=== PATIENT | female | born 1955 | race Caucasian/White ===

== ENCOUNTER 2016-08-10 10:21 | Emergency (ER) | payer MEDICARE ==
[2016-08-10 10:27] VITALS: BP 121/70
--- NOTE | 2016-08-10 11:59 | XRAY Preliminary Report ---
Exam: XR Ankle 3 View RT IMPRESSION: Soft tissue swelling. [facility] SITE ID: [id number]
--- NOTE | 2016-08-10 12:02 | XRAY Report ---
EXAM: RIGHT ANKLE RADIOGRAPHY EXAM DATE: 08/10/2016 11:48 AM. CLINICAL HISTORY: Right ankle injury. COMPARISON: None. TECHNIQUE: 3 views. FINDINGS: Bones: No definite fracture or other bone lesion. Joints: Normal. No effusion. No subluxations. The ankle mortise is normally aligned. Soft Tissues: Mild soft tissue swelling over malleoli. IMPRESSION: Soft tissue swelling. [facility] Referring Provider Line: [phone] SITE ID: [id number]
--- NOTE | 2016-08-10 12:18 | ED Physician Documentation ---
PD HPI LOWER EXT INJURY - Stated complaint Stated Complaint: R ANKLE PX - Chief complaint Chief Complaint: Ext Problem - History obtained from History obtained from: Patient - History of Present Illness PD HPI LOW EXT INJURY LOCATION: Right, Ankle Type of injury: Twist Where injury occurred: Home Timing - onset: How many days ago (4) Timing - details: Still present Worsened by: Moving, Other (Weightbearing) Associated symptoms: Swelling. No: Weakness, Numbness - Treatment prior to arrival Treatment prior to arrival: She uses one half Percocet every 4-5 hours for chronic back pain. - Additional information Additional information: The patient is a 60-year-old female who presents with right ankle pain that started 4 days ago when she fell while working in her yard. She denies any other injuries. She presents now because of continued pain at the anterior and lateral aspect of her right ankle. The pain is worse with weightbearing. Past medical history is significant for chronic back pain for which she uses one half Percocet every 4-5 hours. Review of Systems Constitutional: denies: Fever Ears: denies: Tinnitus/ringing Nose: denies: Congestion Throat: denies: Swollen tonsils Cardiac: denies: Chest pain / pressure, Calf pain Respiratory: denies: Dyspnea GI: denies: Nausea, Vomiting Skin: denies: Rash, Abrasion (s) Musculoskeletal: reports: Back pain (chronically), Joint pain (right ankle). denies: Neck pain Neurologic: denies: Focal weakness, Numbness, Headache PD PAST MEDICAL HISTORY - Past Medical History Cardiovascular: None Respiratory: None Neuro: None Musculoskeletal: Chronic back pain - Present Medications Home Medications: Ambulatory Orders Medication Instructions Recorded Confirmed Home Medications Unobtainable 08/10/16 08/10/16 [HOME MEDICATIONS UNOBTAINABLE] - Allergies Allergies/Adverse Reactions: Allergies Allergy/AdvReac Type Severity Reaction Status Date / Time No Known Drug Allergies Allergy Verified 08/10/16 10:26 - Social History Does the pt smoke?: No Smoking Status: Never smoker PD ED PE NORMAL - Vitals Vital signs reviewed: Yes (normal) - General General: Alert and oriented X 3, Well developed/nourished - HEENT HEENT: Atraumatic - Respiratory Respiratory: No respiratory distress - Derm Derm: No rash - Extremities Extremities: No edema, No calf tenderness / cord, Other (There is mild tenderness to palpation over the anterior lateral aspect of the right ankle. There is minimal soft tissue swelling; no ecchymosis. There is no tenderness to palpation over the posterior aspect of the lateral malleolus malleolus, the fifth metatarsal base, or the proximal fibula. Distal neurovascular is intact.) - Neuro Neuro: Alert and oriented X 3, No motor deficit, No sensory deficit, Normal speech Results - Vitals Vitals: Oxygen O2 Source Room air - Rads (name of study) ankle xray Radiology: Prelim report reviewed, EMP read contemporaneously, See rad report ( Soft tissue swelling.) Procedures - Splint (location) Right ankle Splint applied by: Tech Type of splint: Ankle airsplint Other: Patient tolerated well, No complications, Neurovascular intact PD MEDICAL DECISION MAKING - ED course Complexity details: reviewed results, re-evaluated patient, considered differential, d/w patient ED course: The patient's presentation is most consistent with right ankle sprain. X-ray reveals soft tissue swelling, without evidence of fracture or dislocation. An ankle air splint was applied. I discussed with her the expected course of injury, symptomatic treatment and outpatient follow-up, as well as potentially worrisome signs or symptoms that should prompt reevaluation in the emergency department. Departure - Departure Disposition: 01 Home, Self Care Clinical Impression: Ankle sprain Qualifiers: Encounter type: initial encounter Involved ligament of ankle: unspecified ligament Laterality: right Qualified Code(s): S93.401A - Sprain of unspecified ligament of right ankle, initial encounter Condition: Stable Instructions: ED Sprain Ankle W X Ray Follow-Up: Marli Oh MD [Primary Care Provider] - Comments: Keep your right leg elevated as much the time as possible. Apply icepack to your right ankle intermittently for the next 3 or 4 days. Use the ankle air splint it provides comfort. You can use ibuprofen, up to 800 mg 3 times daily, if needed for discomfort. Let pain be your guide to activity level. Follow up with your primary physician within 2 weeks. Call to schedule an appointment. Return to the emergency department if you develop increasing pain or swelling, or otherwise worsening symptoms. Discharge Date/Time: 08/10/16 12:23
== END 2016-08-10 12:23 | disposition home or self-care (01) ==
LOC: ED 10:21
DX: S93.401A Sprain of unspecified ligament of right ankle, initial encounter (principal); W18.30XA Fall on same level, unspecified, initial encounter; Y93.H9 Activity, other involving exterior property and land maintenance, building and construction; Y92.007 Garden or yard of unspecified non-institutional (private) residence as the place of occurrence of the external cause; M54.9 Dorsalgia, unspecified; G89.29 Other chronic pain
CPT/HCPCS: 99283

== ENCOUNTER 2017-10-24 04:08 | Emergency (ER) | payer MEDICARE ==
[2017-10-24] MEDS ORDERED: HYDROmorphone 1 MG/ML CARPUJECT IVP STA (05:08)
[2017-10-24] MEDS ORDERED: ONDANSETRON 4 MG/2 ML VIAL IVP STA (05:08)
[2017-10-24] MEDS ORDERED: SODIUM CHLORIDE 0.9% 1,000 ML IV ONE (05:08)
--- NOTE | 2017-10-24 05:11 | ED Physician Documentation ---
PD HPI BACK PAIN - Stated complaint Stated Complaint: BACK PAIN,LE WEAKNESS - Chief complaint Chief Complaint: Back Pain - History obtained from History obtained from: Patient, Family ( [place]) - History of Present Illness Timing - onset: How many days ago (10) Timing - duration: Days (10) Timing - details: Gradual onset, Still present Location: Lower, Right, Left Quality: Pain, Spasm, Sharp, Similar to prior episodes Associated symptoms: Weakness (left), Numbness (left). No: Fever, Incontinent of urine, Unable to urinate, Hematuria, Incontinent of stool Improves with: Rest, Meds Worsened by: Movement, Palpation Contributing factors: Other (has history of low back pain) Similar symptoms before: Diagnosis (back pain) Recently seen: Not recently seen - Additional information Additional information: 61-year-old female with a history of chronic low back pain who takes one half of a Percocet 4 times per day has developed significantly worse back pain over the past 10 days. She states that she awoke with this back pain about 10 days ago that was worse and this morning she went to get out of bed and not only felt quite dizzy but had significant pain. She has decided to come to the emergency department this morning. She relates a fall tripping in some brush on the side of the road that occurred approximately 3 weeks ago. She seems to have recovered from that with an abrasion to her knee and a sprain of her left arm. She did not have pain in her back associated with that fall. She relates that she gets up to go to the bathroom 4 or 5 times per night. She does not have a history of diabetes. Review of Systems Constitutional: denies: Fever Eyes: denies: Decreased vision Ears: denies: Ear pain Nose: denies: Congestion Throat: denies: Sore throat Cardiac: denies: Chest pain / pressure, Palpitations Respiratory: denies: Dyspnea, Cough GI: denies: Abdominal Pain, Nausea, Vomiting : denies: Dysuria, Frequency Musculoskeletal: reports: Back pain, Extremity pain. denies: Neck pain Neurologic: reports: Focal weakness, Numbness. denies: Generalized weakness PD PAST MEDICAL HISTORY - Past Medical History Past Medical History: Yes Cardiovascular: Hypertension, High cholesterol Respiratory: None Musculoskeletal: Chronic back pain - Past Surgical History Past Surgical History: Yes Ortho: Other - Present Medications Home Medications: Ambulatory Orders Medication Instructions Recorded Confirmed Sulfamethoxazole/Trimethoprim 1 each PO BID #10 tablet 10/24/17 [Sulfamethoxazole-Tmp Ds Tablet] oxyCODONE/ACET 5/325 [Percocet 5 1 tab PO Q4HR PRN 10/24/17 10/24/17 mg/325 mg] - Allergies Allergies/Adverse Reactions: Allergies Allergy/AdvReac Type Severity Reaction Status Date / Time No Known Drug Allergies Allergy Verified 10/24/17 04:25 - Social History Does the pt smoke?: No Smoking Status: Never smoker Does the pt drink ETOH?: No Does the pt have substance abuse?: No - Immunizations Immunizations are current?: Yes - POLST Patient has POLST: No PD ED PE NORMAL - Vitals Vital signs reviewed: Yes (hypertensive ) - General General: Alert and oriented X 3, Well developed/nourished, Other (The patient moves slowly and winches in pain with movement. ) - HEENT HEENT: Atraumatic, PERRL, EOMI - Neck Neck: Supple, no meningeal sign, No bony TTP - Cardiac Cardiac: RRR, No murmur - Respiratory Respiratory: No respiratory distress, Clear bilaterally - Abdomen Abdomen: Soft, Non tender - Back Back: No CVA TTP, Other (There is tenderness to palpation of the lower lumbar paraspinous muscles bilaterally worse on the left. ) - Derm Derm: Normal color, Warm and dry, No rash - Extremities Extremities: No deformity, No edema - Neuro Neuro: Alert and oriented X 3, commercial estimator 2-12 intact, Normal speech, Other (There is subjective numbness to the back of the calf and to the web space of the foot on the left. The dorsiflexion of the great toe appears intact bilaterally and is slightly worse on the left. She is able to raise the right leg but is weak on hip flexion on the left. ) Eye Opening: Spontaneous Motor: Obeys Commands Verbal: Oriented GCS Score: 15 - Psych Psych: Normal mood, Normal affect Results - Vitals Vitals: Vital Signs - 24 hr 10/24/17 10/24/17 10/24/17 04:15 06:00 06:39 Temperature 36.5 C 36.3 C L 36.0 C L Heart Rate 77 76 68 Respiratory 17 14 16 Rate Blood Pressure 137/79 H 106/80 111/51 L O2 Saturation 98 97 95 10/24/17 06:55 Temperature 36.2 C L Heart Rate 65 Respiratory 14 Rate Blood Pressure 109/66 O2 Saturation 95 Oxygen O2 Source Room air - Labs Labs: Laboratory Tests 10/24/17 10/24/17 10/24/17 05:05 05:10 05:10 WBC 7.8 RBC 4.33 Hgb 13.7 Hct 41.2 MCV 95.2 MCH 31.7 H MCHC 33.3 RDW 13.2 Plt Count 356 MPV 7.1 L Neut # (Auto) 5.0 Lymph # (Auto) 2.1 [place] # (Auto) 0.5 Eos # (Auto) 0.2 Baso # (Auto) 0.1 Absolute Nucleated RBC 0.00 Nucleated RBC % 0.1 Sodium 139 Potassium 3.5 Chloride 104 Carbon Dioxide 28 Anion Gap 7.0 BUN 15 Creatinine 0.7 Estimated GFR (MDRD) 85 L Glucose 94 Calcium 9.3 Total Bilirubin 0.7 AST 16 ALT 17 Alkaline Phosphatase 88 Total Protein 7.6 Albumin 4.2 Globulin 3.4 Albumin/Globulin Ratio 1.2 Lipase 26 Urine Color YELLOW Urine Clarity CLEAR Urine pH 6.0 Ur Specific [place] 1.010 Urine Protein NEGATIVE Urine Glucose (UA) NEGATIVE Urine Ketones NEGATIVE Urine Occult Blood NEGATIVE Urine Nitrite NEGATIVE Urine Bilirubin NEGATIVE Urine Urobilinogen 0.2 (NORMAL) Ur Leukocyte Esterase SMALL H Urine RBC 0-5 Urine WBC 6-10 H Ur Epithelial Cells FEW Renal Tubular Ur Squamous Epith Cells MOD Squamous H Urine Bacteria Few Ur Microscopic Review INDICATED Urine Culture Comments NOT INDICATED - Rads (name of study) lumbar spine Radiology: Prelim report reviewed (Impression: 1. Osteopenia and degenerative changes. 2 Mild chronic wedging at L2. 3 No acute abnormality seen.), EMP read indepedently, See rad report Procedures - IVC sono (time) 0500 Bedside IVC sono: IVC measures (cm) (1.19), IVC collapsed c insp (cm) (complete) , Dehydration (est 1 liter deficit.) PD MEDICAL DECISION MAKING - ED course Complexity details: reviewed old records, reviewed results, re-evaluated patient , considered differential, d/w patient, d/w family ED course: 61-year-old female with a history of low back pain chronically has developed significant worsening of her pain over the past 10 days and this morning she is in agony with pain. She arrives to the emergency department barely able to move. She is found to be mildly dehydrated on interrogation of the IVC and she is administered saline, Dilaudid, Zofran and dexamethasone. She has remarkable recovery and feels much improved. She did ask to have imaging procedures done of her back which demonstrated an remote L2 fracture. On evaluation she is found to have UTI and she is administered rocephin and we will place her on some sept. - Sepsis Event Vital Signs: Vital Signs - 24 hr 10/24/17 10/24/17 10/24/17 04:15 06:00 06:39 Temperature 36.5 C 36.3 C L 36.0 C L Heart Rate 77 76 68 Respiratory 17 14 16 Rate Blood Pressure 137/79 H 106/80 111/51 L O2 Saturation 98 97 95 10/24/17 06:55 Temperature 36.2 C L Heart Rate 65 Respiratory 14 Rate Blood Pressure 109/66 O2 Saturation 95 Oxygen O2 Source Room air Departure - Departure Disposition: 01 Home, Self Care Clinical Impression: Sciatica Qualifiers: Laterality: left Qualified Code(s): M54.32 - Sciatica, left side Urinary tract infection Qualifiers: Urinary tract infection type: acute cystitis Hematuria presence: without hematuria Qualified Code(s): N30.00 - Acute cystitis without hematuria Instructions: ED Sciatica, ED UTI Cystitis Female Follow-Up: Marli Oh MD [Primary Care Provider] - Prescriptions: Sulfamethoxazole/Trimethoprim [Sulfamethoxazole-Tmp Ds Tablet] 1 each PO BID # 10 tablet
[2017-10-24 05:29] LABS: BILIRUBIN,URINE NEGATIVE (NEGATIVE); GLUCOSE, URINE (UA) NEGATIVE (NEGATIVE); KETONES,URINE (UA) NEGATIVE (NEGATIVE); LEUKOCYTE ESTERASE, URINE SMALL (NEGATIVE); NITRITE,URINE NEGATIVE (NEGATIVE); OCCULT BLOOD,URINE NEGATIVE (NEGATIVE); PROTEIN,URINE NEGATIVE (NEGATIVE); UROBILINOGEN,URINE 0.2 (NORMAL) E.U./dL (NORMAL)
[2017-10-24 05:30] LABS: BASOPHILS # (AUTO) 0.1 10^3/uL (0.0-0.1); BASOPHILS % (AUTO) 0.6 %; EOSINOPHILS # (AUTO) 0.2 10^3/uL (0.0-0.7); EOSINOPHILS % (AUTO) 2.2 %; HGB - HEMOGLOBIN 13.7 g/dL (12.0-16.0); LYMPHOCYTES # (AUTO) 2.1 10^3/uL (1.5-3.5); LYMPHOCYTES % (AUTO) 26.4 %; MEAN CORPUSCULAR HEMOGLOBIN 31.7 pg (27.0-31.0); MEAN CORPUSCULAR HGB CONC 33.3 g/dL (32.0-36.0); MEAN CORPUSCULAR VOLUME 95.2 fL (81.0-99.0); MEAN PLATELET VOLUME 7.1 fL (7.9-10.8); MONOCYTES # (AUTO) 0.5 10^3/uL (0.0-1.0); MONOCYTES % (AUTO) 6.2 %; NEUTROPHILS % (AUTO) 64.6 %; PLT - PLATELET COUNT 356 10^3/uL (130-450); RED BLOOD COUNT 4.33 10^6/uL (4.20-5.40); RED CELL DISTRIBUTION WIDTH 13.2 % (12.0-15.0); WHITE BLOOD COUNT 7.8 x10^3/uL (4.8-10.8)
[2017-10-24 05:31] LABS: CLARITY,URINE CLEAR (CLEAR)
[2017-10-24 05:43] LABS: ALBUMIN 4.2 g/dL (3.2-5.5); ALBUMIN/GLOBULIN RATIO 1.2 (1.0-2.2); BILIRUBIN,TOTAL 0.7 mg/dL (0.2-1.0); CALCIUM 9.3 mg/dL (8.5-10.3); CREATININE 0.7 mg/dL (0.4-1.0); TOTAL PROTEIN 7.6 g/dL (6.7-8.2)
[2017-10-24 05:45] LABS: BACTERIA,URINE Few /HPF (None Seen); EPITHELIAL CELLS,UR FEW Renal Tubular /HPF (<= Few); RBC,URINE 0-5 /HPF (0-5); SQUAMOUS EPITHELIAL CELL,UR MOD Squamous (<= Few)
[2017-10-24] MEDS ORDERED: cefTRIAXone 1 GM in SODIUM CHLORIDE 0.9% MINIBAG 100 ML IV STA (05:56)
[2017-10-24] MEDS ORDERED: DEXAMETHASONE 10 MG/ML VIAL IVP STA (05:58)
--- NOTE | 2017-10-24 06:51 | XRAY Report ---
Procedure Date: 10/24/2017 Accession Number: [id number] / [id number] Procedure: XR - Lumbar Spine 2 View CPT Code: FULL RESULT: EXAM: LUMBOSACRAL SPINE RADIOGRAPHY EXAM DATE: 10/24/2017 06:43 AM. CLINICAL HISTORY: Lower lumbar pain recent fall. COMPARISONS: XR LUMBAR SPINE 2 OR 3 VIEWS 04/30/2008. TECHNIQUE: 2 views. FINDINGS: Alignment: Minimal lumbar curvature convex to the left. Minimal grade 1 degenerative spondylolisthesis at L4-L5. Bones: Five [id number] lumbar vertebral bodies are present. Osteopenia. Mild chronic wedging at L2. No new fracture identified. Disks: Mild multilevel degenerative disk disease. Facets: Multilevel degenerative joint disease. Sacroiliac Joints: Unremarkable. Soft Tissues: Grossly unremarkable. IMPRESSION: 1. Osteopenia and degenerative changes. 2. Mild chronic wedging at L2. 3. No acute abnormality seen. [facility]
[2017-10-24 06:56] VITALS: BP 109/66
== END 2017-10-24 07:06 | disposition home or self-care (01) ==
LOC: ED 04:08
DX: M54.32 Sciatica, left side (principal); N30.00 Acute cystitis without hematuria; E86.0 Dehydration; I10 Essential (primary) hypertension; G89.29 Other chronic pain; M54.5 Low back pain; M51.36 Other intervertebral disc degeneration, lumbar region; M48.56XA Collapsed vertebra, not elsewhere classified, lumbar region, initial encounter for fracture
CPT/HCPCS: 36415; 72100; 80053; 81001; 83690; 85025; 96361; 96365; 96375; 99283; 99284; J1170; 81003; 87086

== ENCOUNTER 2019-03-18 22:53 | Emergency (ER) | payer MEDICARE ==
[2019-03-18 23:17] VITALS: BP 130/96
--- NOTE | 2019-03-18 23:23 | ED Physician Documentation ---
PD HPI UPPER EXT INJURY - Stated complaint Stated Complaint: RIGHT ARM POST OPP PX - Chief complaint Chief Complaint: Ext Problem - History obtained from History obtained from: Patient, Family - History of Present Illness Location: Right, Elbow, Wrist Type of injury: Fall Where injury occurred: Home Timing - onset: How many weeks ago (2) Timing - duration: Weeks (2) Timing - details: Abrupt onset Improved by: Rest, Immobilization Worsened by: Moving, Palpating Associated symptoms: Swelling. No: Weakness, Numbness, Tingling Contributing factors: Anticoagulated Similar symptoms before: Has not had sx before Recently seen: Surgery - Additonal information Additional information: 63-year-old female has had a fall and fracture of her right elbow. She required replacement of the right elbow and that surgery was done today at [facility]. She has come into the emergency department this evening with the chief complaint that she feels her splint is on too tight right at her hand. She has noted the splint to be digging into the ulnar aspect of the hand and causing pain. She was not able to sleep because of this. She does not have much in the way of pain over the surgical site and the splint otherwise is fitting well. She has good capillary refill. Review of Systems Constitutional: denies: Fever, Chills Ears: denies: Ear pain Nose: denies: Congestion Throat: denies: Sore throat Respiratory: denies: Cough GI: denies: Vomiting PD PAST MEDICAL HISTORY - Past Medical History Cardiovascular: Hypertension, High cholesterol Respiratory: None Musculoskeletal: Chronic back pain - Past Surgical History Past Surgical History: Yes Ortho: Other - Present Medications Home Medications: Ambulatory Orders Medication Instructions Recorded Confirmed Sulfamethoxazole/Trimethoprim 1 each PO BID #10 tablet 10/24/17 [Sulfamethoxazole-Tmp Ds Tablet] oxyCODONE/ACET 5/325 [Percocet 5 1 tab PO Q4HR PRN 10/24/17 10/24/17 mg/325 mg] - Allergies Allergies/Adverse Reactions: Allergies Allergy/AdvReac Type Severity Reaction Status Date / Time Sulfa (Sulfonamide Allergy Unknown Verified 03/18/19 23:17 Antibiotics) - Social History Does the pt smoke?: No Smoking Status: Never smoker Does the pt drink ETOH?: No Does the pt have substance abuse?: No - Immunizations Immunizations are current?: Yes - POLST Patient has POLST: No PD ED PE NORMAL - Vitals Vital signs reviewed: Yes (hypertensive ) - General General: Alert and oriented X 3, No acute distress, Well developed/nourished - HEENT HEENT: Atraumatic, PERRL, EOMI - Respiratory Respiratory: No respiratory distress - Derm Derm: Normal color, Warm and dry - Extremities Extremities: Other (The right upper extremity is in a long arm splint to the mid metacarpal. There is swelling of the hand and the splint is compressing at the metacarpal. The splint is placed so that there is not movement of the wrist. distal n/v is intact. ) - Neuro Neuro: Alert and oriented X 3, eye dropper assembler 2-12 intact, No motor deficit, No sensory deficit, Normal speech Eye Opening: Spontaneous Motor: Obeys Commands Verbal: Oriented GCS Score: 15 - Psych Psych: Normal mood, Normal affect Results - Vitals Vitals: Vital Signs - 24 hr 03/18/ 23:00 Temperature 36.8 C Heart Rate 95 Respiratory 16 Rate Blood Pressure 130/96 H O2 Saturation 97 Oxygen O2 Source Room air PD MEDICAL DECISION MAKING - ED course Complexity details: reviewed old records, reviewed results, re-evaluated patient, considered differential, d/w patient, d/w family ED course: 63-year-old female with a splint placed earlier today that is compressing at her fifth metacarpal. The cast cutter is used to remove the distal portion of the splint and then a splint is reapplied over the top of that with additional padding. The patient will follow up with orthopedic doctor as previously planned. Departure - Departure Disposition: 01 Home, Self Care Clinical Impression: Tight cast Condition: Stable Instructions: ED Splint Care Fiberglass Follow-Up: LARON COATS [Physician No Access] -
== END 2019-03-18 23:45 | disposition home or self-care (01) ==
LOC: ED 22:53
DX: G89.18 Other acute postprocedural pain (principal); M79.601 Pain in right arm; Z51.89 Encounter for other specified aftercare; S52.121D Displaced fracture of head of right radius, subsequent encounter for closed fracture with routine healing; W19.XXXD Unspecified fall, subsequent encounter; I10 Essential (primary) hypertension
CPT/HCPCS: 99282

== ENCOUNTER 2019-09-04 14:50 | Emergency (ER) | payer MEDICARE ==
--- NOTE | 2019-09-04 15:46 | ED Physician Documentation ---
History of Present Illness - Stated complaint Stated Complaint: LT SIDE PX, PRODUCTIVE COUGH - HX OF PN - Chief complaint Chief Complaint: Resp - History obtained from History obtained from: Patient - Additonal information Additional information: Patient comes emergency department complaining of left-sided chest/rib pain for the last month. She denies any trauma. She states she has had a cough prod uctive of clear phlegm. She denies any fevers or chills. She states she otherwise feels well. No shortness of breath. No long history. No radiation of pain. Pain is worse with deep breath or cough. No abdominal symptoms. No nausea or vomiting. No other complaints. Review of Systems Ten Systems: 10 systems reviewed and negative Constitutional: reports: Reviewed and negative Eyes: reports: Reviewed and negative Ears: reports: Reviewed and negative Nose: reports: Reviewed and negative Throat: reports: Reviewed and negative Cardiac: reports: Chest pain / pressure Respiratory: reports: Reviewed and negative GI: reports: Reviewed and negative : reports: Reviewed and negative Skin: reports: Reviewed and negative Musculoskeletal: reports: Reviewed and negative Neurologic: reports: Reviewed and negative Psychiatric: reports: Reviewed and negative Endocrine: reports: Reviewed and negative Immunocompromised: reports: Reviewed and negative PD PAST MEDICAL HISTORY - Past Medical History Cardiovascular: Hypertension, High cholesterol Respiratory: None Neuro: None Endocrine/Autoimmune: None GI: None [employer] SERV[employer] DBA: None : None HEENT: None Psych: None Musculoskeletal: None, Chronic back pain Derm: None - Past Surgical History Past Surgical History: Yes Ortho: Other - Present Medications Home Medications: Ambulatory Orders Medication Instructions Recorded Confirmed Sulfamethoxazole/Trimethoprim 1 each PO BID #10 tablet 10/24/17 [Sulfamethoxazole-Tmp Ds Tablet] oxyCODONE/ACET 5/325 [Percocet 5 1 tab PO Q4HR PRN 10/24/17 10/24/17 mg/325 mg] - Allergies Allergies/Adverse Reactions: Allergies Allergy/AdvReac Type Severity Reaction Status Date / Time Sulfa (Sulfonamide Allergy Unknown Verified 09/04/19 14:58 Antibiotics) - Social History Does the pt smoke?: No Smoking Status: Never smoker Does the pt drink ETOH?: No Does the pt have substance abuse?: No - Immunizations Immunizations are current?: Yes - POLST Patient has POLST: No PD ED PE NORMAL - Vitals Vital signs reviewed: Yes - General General: Alert and oriented X 3, No acute distress - HEENT HEENT: Atraumatic, PERRL, EOMI, Moist mucous membranes - Neck Neck: Supple, no meningeal sign - Cardiac Cardiac: RRR, No murmur, Strong equal pulses - Respiratory Respiratory: No respiratory distress, Clear bilaterally - Abdomen Abdomen: Soft, Non tender, Non distended - Back Back: No CVA TTP - Derm Derm: Normal color, Warm and dry, No rash, Other (Patient has an approximately 3 mm, firm, rubbery, mobile left axillary lymph node without overlying erythema, induration, or fluctuance. Note is minimally tender.) - Extremities Extremities: No deformity, No edema, No calf tenderness / cord - Neuro Neuro: Alert and oriented X 3, Other (Grossly normal) - Psych Psych: Normal mood, Normal affect Results - Vitals Vitals: Vital Signs - 24 hr 09/04/19 09/04/19 09/04/19 14:54 14:58 17:46 Temperature 36.5 C 36.8 C Heart Rate 71 72 67 Respiratory 18 18 18 Rate Blood Pressure 150/76 H 148/86 H 172/84 H O2 Saturation 97 97 97 Oxygen O2 Source Room air - Labs Labs: Laboratory Tests 09/04/19 16:50 Coronavirus (PCR) NEGATIVE - Rads (name of study) cxr Radiology: Final report received, EMP read indepedently, See rad report (negative) CT chest Radiology: Final report received, EMP read indepedently, See rad report (Final radiologist interpretation: Circumscribed left axillary mass likely representing an enlarged lymph node. The finding is suspicious for metastatic disease. Differential also includes reactive node from an atypical infection or inflammatory process. Recommend correlation clinically. No acute consolidation in the lungs. Small nonspecific 2 mm right middle lobe nodule. The finding in the indeterminate clinical significance follow-up CT recommended in 12 months.) PD MEDICAL DECISION MAKING - ED course Complexity details: reviewed results, re-evaluated patient, considered differential, d/w patient ED course: Patient was worked up in the emergency department with 2 view chest x-ray and COVID testing. The patient's chest x-ray was unremarkable, but given the duration of pain she had been having, I felt she should have a CT of the chest To further evaluate the pain. This was done and demonstrated a benign-appearing right lung nodule but also, left axillary lymphadenopathy which was suspicious for metastatic disease. I did discuss this with the patient, who had not jennifer t up the lymph node on our initial discussion, and she stated she had noticed the enlarged lymph node for a while. I have discussed with her that it is of extreme importance that she follow-up as soon as possible for further evaluation of this by biopsy. I have advised her to call her primary care physician first thing in the morning, and that while we have not found any potential primary source of metastases that she will most likely need further evaluation. Patient is agreeable to the plan. I have also advised the patient that she should be doing regular breast exams on herself, which the patient states that she does. She does note that she has not had a mastectomy in many years, and I would asked her that is probably time to consider having this done in the near future. Departure - Departure Disposition: 01 Home, Self Care Clinical Impression: Lymph node enlargement, Pulmonary nodule Chest pain Qualifiers: Chest pain type: pleurodynia Qualified Code(s): R07.81 - Pleurodynia Condition: Stable Instructions: Lymphadenopathy Comments: Your chest x-ray looks good. However, the CT scan shows an enlarged lymph node in your left armpit that is concerning for possible metastatic cancer. You were found to have a nodule, or small soft tissue growth, in your right lung which is most likely benign, but should be reimaged in about a month 12 months. However, the lymph node should be biopsied as soon as possible. As such, you should call your primary care physician's office to either be scheduled for this or to request a referral to somebody who can do it. When you call to make the appointment, please let the office know that this is a possible cancerous growth and that you have been instructed to be seen as soon as possible. Discharge Date/Time: 09/04/19 19:09
--- NOTE | 2019-09-04 15:51 | XRAY Report ---
Reason: cough, left posterior rib pain, shortness of breat Procedure Date: 09/04/2019 Accession Number: [id number] / [id number] Procedure: XR - Chest 2 View X-Ray CPT Code: 82748 Final Report FULL RESULT: PROCEDURE: Chest 2 View X-Ray INDICATIONS: cough, left posterior rib pain, shortness of breat TECHNIQUE: 2 views of the chest were obtained. COMPARISON: Chest x-ray 06/19/2013 FINDINGS: Surgical changes and devices: None. Lungs and pleura: No pleural effusions or pneumothorax. Lungs are clear. Mediastinum: Mediastinal contours are normal. Heart size is mildly prominent. Bones and chest wall: No suspicious bony abnormalities. Soft tissues appear unremarkable. IMPRESSION: No acute pulmonary process. Reviewed by: Ximena Shore MD on 09/04/2019 3:50 PM PDT Approved by: Ximena Shore MD on 09/04/2019 3:50 PM PDT Station ID: [id number]
[2019-09-04 17:47] VITALS: BP 172/84
--- NOTE | 2019-09-04 18:35 | CT Report ---
Reason: ongoing L chest pain, cough Procedure Date: 09/04/2019 Accession Number: [id number] / [id number] Procedure: CT - CHEST WO CPT Code: Final Report FULL RESULT: PROCEDURE: CHEST WO INDICATIONS: ongoing L chest pain, cough TECHNIQUE: Noncontrast 5 mm thick sections acquired from the pulmonary apices to the posterior costophrenic angles. 7 mm thick coronal and sagittal MIP reformats were then acquired. For radiation dose reduction, the following was used: automated exposure control, adjustment of mA and/or kV according to patient size. COMPARISON: Chest x-ray 09/04/2019 FINDINGS: Image quality: Excellent. Lungs and pleura: No acute consolidation. There is a small 2 mm nodule in the right middle lobe on series 4 image 163. No pleural effusions or pneumothorax. Central and peripheral airways are patent and normal in caliber. Mediastinum: Heart size is normal. No pericardial effusion. No mediastinal adenopathy by size criteria. Thoracic aorta and central pulmonary arteries are normal in size. Esophagus is normal in caliber. No hiatal hernia. Bones and chest wall: No suspicious bony lesions. No vertebral body compression fractures. There is a large oval lobulated circumscribed mass in the left axilla measuring up to 4.0 x 3.1 x 4.1 cm likely representing an enlarged lymph node. No discrete mass visualized within the visualized left breast. The thyroid demonstrates no discrete nodules. Abdomen: Visualized upper abdomen demonstrates a small nonobstructing stone within the visualized right kidney measuring up to 3 mm. There is a right adrenal nodule measuring up to 2.4 cm. This demonstrates attenuation values compatible with a lipid rich adenoma. IMPRESSION: 1. Circumscribed left axillary mass likely representing an enlarged lymph node. The finding is suspicious for metastatic disease. The differential also includes a reactive node from an atypical infection or inflammatory process. Recommend correlation clinically. Further evaluation may be obtained with an ultrasound-guided biopsy. 2. No acute consolidation in the lungs. 3. Small nonspecific 2 mm right middle lobe nodule. The finding is of indeterminate clinical significance and if indicated a follow-up CT may be performed in 12 months to demonstrate stability. Reviewed by: Pako Caceres MD on 09/04/2019 6:34 PM PDT Approved by: Pako Caceres MD on 09/04/2019 6:34 PM PDT Station ID: [id number]
== END 2019-09-04 19:09 | disposition home or self-care (01) ==
LOC: ED 14:50
DX: R07.81 Pleurodynia (principal); R59.0 Localized enlarged lymph nodes; R91.1 Solitary pulmonary nodule; R05 Cough; Z20.828 Contact with and (suspected) exposure to other viral communicable diseases; I10 Essential (primary) hypertension
CPT/HCPCS: 71046; 71250; 99283; 99284; U0004; 81599

== ENCOUNTER 2019-09-23 07:07 | Emergency (ER) | payer MEDICARE ==
--- NOTE | 2019-09-23 07:16 | ED Physician Documentation ---
PD HPI ABD PAIN - Stated complaint Stated Complaint: R SIDE BACK PX - History obtained from History obtained from: Patient - History of Present Illness Timing - onset: How many hours ago (1), Today Timing - duration: Hours (1) Timing - details: Abrupt onset, Still present Quality: Aching, Sharp, Pain Location: RLQ Radiation: Right flank Improved by: No: Eating Worsened by: No: Eating Associated symptoms: Nausea. No: Fever, Vomiting, Diarrhea, Constipation, Near syncope / syncope, Loss of appetite Similar symptoms before: Has not had sx before Recently seen: Clinic, Emergency Dept (seen few weeks ago for chest pain and Dx with axillary node and possible chest wall/breast lesion. She had this biopsied and Dx of breast cancer. Seeing Oncology soon. Had not had the flnak pain though until today.) Review of Systems Constitutional: denies: Fever, Chills, Myalgias Nose: denies: Rhinorrhea / runny nose, Congestion Throat: denies: Sore throat Respiratory: denies: Cough GI: reports: Abdominal Pain. denies: Nausea, Vomiting, Diarrhea Skin: denies: Rash, Lesions Neurologic: denies: Generalized weakness, Difficulty speaking, Near syncope PD PAST MEDICAL HISTORY - Past Medical History Cardiovascular: Hypertension, High cholesterol Respiratory: None Neuro: None Endocrine/Autoimmune: None GI: None RN TRIAGE: None : None HEENT: None Psych: None Musculoskeletal: None, Chronic back pain Derm: None - Past Surgical History Past Surgical History: Yes Ortho: Other - Present Medications Home Medications: Ambulatory Orders Medication Instructions Recorded Confirmed Sulfamethoxazole/Trimethoprim 1 each PO BID #10 tablet 10/24/17 09/23/19 [Sulfamethoxazole-Tmp Ds Tablet] oxyCODONE/ACET 5/325 [Percocet 5 1 tab PO Q4HR PRN 10/24/17 09/23/19 mg/325 mg] Naproxen 500 mg PO BID #20 tablet 09/23/19 Ondansetron Odt [Zofran] 4 mg TL Q6H PRN #10 tablet 09/23/19 Oxycodone HCl/Acetaminophen 1 - 2 each PO Q6H PRN #20 tablet 09/23/19 [Percocet 5-325 mg Tablet] - Allergies Allergies/Adverse Reactions: Allergies Allergy/AdvReac Type Severity Reaction Status Date / Time Sulfa (Sulfonamide Allergy Unknown Verified 09/23/19 07:19 Antibiotics) - Social History Does the pt smoke?: No Smoking Status: Never smoker Does the pt drink ETOH?: No Does the pt have substance abuse?: No - Immunizations Immunizations are current?: Yes - POLST Patient has POLST: No PD ED PE NORMAL - Vitals Vital signs reviewed: Yes - General General: Alert and oriented X 3, Well developed/nourished, Other (appears in pain for flank) - HEENT HEENT: Pharynx benign - Neck Neck: Supple, no meningeal sign, No adenopathy - Cardiac Cardiac: RRR, No murmur - Respiratory Respiratory: Clear bilaterally - Abdomen Abdomen: Non tender Results - Vitals Vitals: Vital Signs - 24 hr 09/23/19 09/23/19 09/23/19 07:13 07:19 09:45 Temperature 36.6 C 36.5 C Heart Rate 60 64 60 Respiratory 16 14 16 Rate Blood Pressure 138/76 H 136/70 H 140/72 H O2 Saturation 97 97 98 Oxygen O2 Source Room air - Labs Labs: Laboratory Tests 09/23/19 09/23/19 09/23/19 07:30 07:45 07:45 WBC 7.2 RBC 3.72 L Hgb 12.5 Hct 37.1 MCV 99.7 H MCH 33.6 H MCHC 33.7 RDW 12.5 Plt Count 277 MPV 8.7 Neut # (Auto) 5.4 Lymph # (Auto) 1.2 L [place] # (Auto) 0.3 Eos # (Auto) 0.2 Baso # (Auto) 0.0 Absolute Nucleated RBC 0.00 Nucleated RBC % 0.0 Sodium 140 Potassium 3.4 L Chloride 102 Carbon Dioxide 29 Anion Gap 9.0 BUN 21 H Creatinine 0.9 Estimated GFR (MDRD) 63 L Glucose 102 H Calcium 9.2 Total Bilirubin 0.9 AST 13 ALT 15 Alkaline Phosphatase 70 Total Protein 7.2 Albumin 3.8 Globulin 3.4 Albumin/Globulin Ratio 1.1 Lipase 38 Urine Color YELLOW Urine Clarity CLEAR Urine pH 5.5 Ur Specific [place] >=1.030 H Urine Protein TRACE Urine Glucose (UA) NEGATIVE Urine Ketones NEGATIVE Urine Occult Blood LARGE H Urine Nitrite NEGATIVE Urine Bilirubin NEGATIVE Urine Urobilinogen 0.2 (NORMAL) Ur Leukocyte Esterase NEGATIVE Urine RBC 11-25 H Urine WBC 4-5 Ur Squamous Epith Cells FEW Squamous Urine Bacteria Few Ur Microscopic Review INDICATED Urine Culture Comments NOT INDICATED - Rads (name of study) KUB CT Radiology: Prelim report reviewed (some right kidney stranding and 3 mm distal ureteral stone. ), See rad report PD MEDICAL DECISION MAKING - ED course Complexity details: reviewed old records (prior chest CT past few weeks, showing right kidney 3 mm stone at the time. Can get CT today to eval for movement of it versus other cause. ), reviewed results, re-evaluated patient (feeling much better with meds here. ), considered differential, d/w patient Departure - Departure Disposition: Home, Self Care Clinical Impression: Acute right flank pain, Ureterolithiasis Condition: Stable Record reviewed to determine appropriate education?: Yes Instructions: ED Stone Renal W Colic Follow-Up: ROBERTO LAMBERT MD [Primary Care Provider] - Prescriptions: Naproxen 500 mg PO BID #20 tablet Oxycodone HCl/Acetaminophen [Percocet 5-325 mg Tablet] 1 - 2 each PO Q6H PRN #20 tablet PRN Reason: pain Ondansetron Odt [Zofran] 4 mg TL Q6H PRN #10 tablet PRN Reason: Nausea / Vomiting Comments: Stay well-hydrated but you do not need to push extra fluids necessarily. Use some anti-inflammatories such as naproxen with food twice daily for the next several days to week until this seems completely resolved. A small stone like you have typically will pass within 2 to 3 days or sooner. Recheck if persistent pain beyond that time. Use ondansetron if needed for nausea. Add Tylenol or oxycodone if needed for worse pain. Return if worse pain despite the above medicines Discharge Date/Time: 09/23/19 09:47
[2019-09-23] MEDS ORDERED: HYDROmorphone 1 MG/ML CARPUJECT IVP STA (07:32)
[2019-09-23] MEDS ORDERED: SODIUM CHLORIDE 0.9% 1,000 ML IV STA (07:32)
[2019-09-23] MEDS ORDERED: ONDANSETRON 4 MG/2 ML VIAL IVP STA (07:32)
[2019-09-23] MEDS ORDERED: KETOROLAC 30 MG/ML VIAL IVP STA (07:32)
[2019-09-23 07:52] LABS: BASOPHILS % (AUTO) 0.4 %; EOSINOPHILS # (AUTO) 0.2 10^3/uL (0.0-0.7); EOSINOPHILS % (AUTO) 2.1 %; HGB - HEMOGLOBIN 12.5 g/dL (12.0-16.0); LYMPHOCYTES # (AUTO) 1.2 10^3/uL (1.5-3.5); LYMPHOCYTES % (AUTO) 16.9 %; MEAN CORPUSCULAR HEMOGLOBIN 33.6 pg (27.0-31.0); MEAN CORPUSCULAR HGB CONC 33.7 g/dL (32.0-36.0); MEAN CORPUSCULAR VOLUME 99.7 fL (81.0-99.0); MEAN PLATELET VOLUME 8.7 fL (7.9-10.8); MONOCYTES # (AUTO) 0.3 10^3/uL (0.0-1.0); MONOCYTES % (AUTO) 4.7 %; NEUTROPHILS # (AUTO) 5.4 10^3/uL (1.5-6.6); NEUTROPHILS % (AUTO) 75.6 %; PLT - PLATELET COUNT 277 10^3/uL (130-450); RED BLOOD COUNT 3.72 10^6/uL (4.20-5.40); RED CELL DISTRIBUTION WIDTH 12.5 % (12.0-15.0); WHITE BLOOD COUNT 7.2 x10^3/uL (4.8-10.8)
[2019-09-23 08:06] LABS: ALBUMIN 3.8 g/dL (3.2-5.5); ALBUMIN/GLOBULIN RATIO 1.1 (1.0-2.2); BILIRUBIN,TOTAL 0.9 mg/dL (0.2-1.0); CALCIUM 9.2 mg/dL (8.5-10.3); CREATININE 0.9 mg/dL (0.4-1.0); TOTAL PROTEIN 7.2 g/dL (6.7-8.2)
[2019-09-23 08:12] LABS: BILIRUBIN,URINE NEGATIVE (NEGATIVE); GLUCOSE, URINE (UA) NEGATIVE (NEGATIVE); KETONES,URINE (UA) NEGATIVE (NEGATIVE); LEUKOCYTE ESTERASE, URINE NEGATIVE (NEGATIVE); NITRITE,URINE NEGATIVE (NEGATIVE); OCCULT BLOOD,URINE LARGE (NEGATIVE); PH,URINE 5.5 PH (5.0-7.5); PROTEIN,URINE TRACE mg/dL (NEGATIVE); UROBILINOGEN,URINE 0.2 (NORMAL) E.U./dL (NORMAL)
[2019-09-23 08:21] LABS: CLARITY,URINE CLEAR (CLEAR)
--- NOTE | 2019-09-23 08:21 | CT Report ---
PROCEDURE: Abdomen/Pelvis WO INDICATIONS: right flank pain onset this AM TECHNIQUE: Noncontrast 5 mm thick sections acquired from the diaphragms to the symphysis. 5 mm coronal and sagi ttal reformats were then performed. For radiation dose reduction, the following was used: automated exposure control, adjustment of mA and/or kV according to patient size. COMPARISON: Lumbar spine radiograph dated 10/24/2017. FINDINGS: Image quality: Excellent. ABDOMEN: Lung bases: Lung bases are clear. Heart size is normal. Solid organs: Liver and spleen are normal in size. Gallbladder contains a small calcified stone wit hin its dependent portion. No gallbladder wall thickening or pericholecystic fluid is seen Pancreas is normal in contours. No adrenal nodules. Kidneys are normal in size. Prominence of right renal collecting system and right ureter is seen with mild apparently nephric and periureteral fat stranding. 3 mm calcification is seen in distal right u reter just proximal to the right UVJ consistent with distal ureteral stone. No left-sided hydronephro sis is seen. 3 mm nonobstructing stone is noted in mid pole of left kidney. No left perinephric fat s tranding. Peritoneum and bowel: Unenhanced bowel loops demonstrate normal wall thickness and caliber. No free fluid or air. Nodes and vessels: No retroperitoneal or mesenteric adenopathy by size criteria. Aorta and inferior vena cava are normal in caliber. Miscellaneous: No ventral hernias. PELVIS: Genitourinary: Bladder wall thickness is normal. Miscellaneous: No inguinal hernias or adenopathy. Bones: No suspicious bony lesions. Degenerative disc disease throughout lumbar spine is seen with ve ry mild chronic appearing anterior wedge compression deformity at L2 and L3 levels not significantly changed from previous lumbar spine radiograph dated 10/24/2017. IMPRESSION: 1. 3 mm distal right ureteral stone just proximal to the right UVJ with mild right-sided hydronephros is and proximal to mid hydroureter. Mild right perinephric fat stranding. 2. 3 mm nonobstructing left renal stone. No left-sided hydronephrosis. Normal-appearing urinary bladd er. 3. Cholelithiasis, no CT evidence of acute cholecystitis. 4. No bowel obstruction. No free fluid or free air. Reviewed by: Reynaldo Martinez MD on 09/23/2019 8:19 AM PDT Approved by: Reynaldo Martinez MD on 09/23/2019 8:19 AM PDT Station ID: [id number]
[2019-09-23 08:43] LABS: BACTERIA,URINE Few /HPF (None Seen); SQUAMOUS EPITHELIAL CELL,UR FEW Squamous (<= Few)
[2019-09-23] MEDS ORDERED: TAMSULOSIN 0.4 MG CAPSULE PO STA (08:50)
[2019-09-23] MEDS ORDERED: DEXAMETHASONE 10 MG/ML VIAL IVP STA (08:50)
[2019-09-23 09:47] VITALS: BP 140/72
== END 2019-09-23 09:47 | disposition home or self-care (01) ==
LOC: ED 07:07
DX: N13.2 Hydronephrosis with renal and ureteral calculous obstruction (principal); K80.20 Calculus of gallbladder without cholecystitis without obstruction; C50.919 Malignant neoplasm of unspecified site of unspecified female breast; I10 Essential (primary) hypertension
CPT/HCPCS: 36415; 74176; 80053; 81001; 83690; 85025; 96374; 96375; 99284; 99285; A9270; J1170; 81003; 87086

== ENCOUNTER 2020-03-10 14:59 | Outpatient (CLI) | payer MEDICARE, MEDICAID ==
--- NOTE | 2020-03-10 15:24 | XRAY Report ---
PROCEDURE: Humerus LT INDICATIONS: MALIGNANT SARA PLASM OF THE LEFT BREAST IN A FEMALE TECHNIQUE: 3 views of the humerus were acquired. COMPARISON: None. FINDINGS: Bones: No fractures or dislocations. No suspicious bony lesions. Mild to moderate acromioclavicula r and glenohumeral joint degeneration. Soft tissues: No suspicious soft tissue calcifications. 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 Reviewed by: Deon Davis MD on 03/10/2020 3:23 PM PST Approved by: Deon Davis MD on 03/10/2020 3:23 PM PST Station ID: [id number]
== END 2020-03-10 15:00 | disposition home or self-care (01) ==
LOC: DI 14:59
PROVIDERS: ATTEND Radiology Therapeutic Radiology
DX: M19.012 Primary osteoarthritis, left shoulder (principal); C50.912 Malignant neoplasm of unspecified site of left female breast

== ENCOUNTER 2023-04-23 15:14 | Emergency (ER) | payer MEDICAID, MEDICARE ==
--- NOTE | 2023-04-23 15:37 | ED Physician Documentation ---
PD HPI NVD - Stated complaint Stated Complaint: NAUSEA,NOT EATING - Chief complaint Chief Complaint: Abd Pain - History obtained from History obtained from: Patient - History of Present Illness Timing - onset: How many weeks ago (2) Timing - duration: Weeks (2) Timing - details: Gradual onset, Still present, Now resolved Associated symptoms: Abdominal pain (mid to left upper associated with nausea and intermittent vomiting initially. Now less appetite and intake due to nausea and increased pain with eating. No diarrhea, no melena.), Loss of appetite. No: Near syncope / syncope Contributing factors: No: Sick contact, Bad food, Recent antibiotics, Alcohol use Improved by: No: Eating, Vomiting Worsened by: Eating, Palpation. No: Breathing Similar symptoms before: Has not had sx before Recently seen: Clinic (seen Oncology clinic about month ago with normal visit. She is on maintanence meds for prior breast CA, with current meds Ibrance and Letrozole. Has Port.) Review of Systems Constitutional: reports: Fatigue. denies: Fever, Chills Nose: denies: Rhinorrhea / runny nose, Congestion Throat: denies: Sore throat Cardiac: denies: Chest pain / pressure Respiratory: denies: Dyspnea, Cough GI: reports: Abdominal Pain, Nausea, Vomiting. denies: Diarrhea, Hematemesis, Bloody / black stool : denies: Dysuria, Frequency Skin: denies: Rash, Lesions Musculoskeletal: denies: Back pain PD PAST MEDICAL HISTORY - Past Medical History Past Medical History: Yes Cardiovascular: Hypertension, High cholesterol Respiratory: None Neuro: None Endocrine/Autoimmune: None GI: None [employer]PERATOR: None, Breast cancer : None HEENT: None Psych: None Musculoskeletal: None, Chronic back pain, Other Derm: None - Past Surgical History Past Surgical History: Yes Ortho: Other /[employer] OPERATOR: Mastectomy, Other - Present Medications Home Medications: Ambulatory Orders Medication Instructions Recorded Confirmed Sulfamethoxazole/Trimethoprim 1 each PO BID #10 tablet 10/24/17 09/23/19 [Sulfamethoxazole-Tmp Ds Tablet] oxyCODONE/ACET 5/325 [Percocet 5 1 tab PO Q4HR PRN 10/24/17 09/23/19 mg/325 mg] Naproxen 500 mg PO BID #20 tablet 09/23/19 Ondansetron Odt [Zofran] 4 mg TL Q6H PRN #10 tablet 09/23/19 Oxycodone HCl/Acetaminophen 1 - 2 each PO Q6H PRN #20 tablet 09/23/19 [Percocet 5-325 mg Tablet] Amoxicillin 500 mg PO TID 7 Days #21 cap 04/28/22 Omeprazole 40 mg PO DAILY #30 cap 04/23/23 Ondansetron Odt [Zofran] 4 mg TL Q6H PRN #10 tablet 04/23/23 - Allergies Allergies/Adverse Reactions: Allergies Allergy/AdvReac Type Severity Reaction Status Date / Time Sulfa (Sulfonamide Allergy Unknown Verified 04/23/23 15:34 Antibiotics) - Social History Does the pt smoke?: No Smoking Status: Never smoker Does the pt drink ETOH?: No Does the pt have substance abuse?: No - Immunizations Immunizations are current?: Yes - POLST Patient has POLST: No PD ED PE NORMAL - Vitals Vital signs reviewed: Yes - General General: Alert and oriented X 3, No acute distress, Well developed/nourished - HEENT HEENT: Pharynx benign - Neck Neck: Supple, no meningeal sign, No adenopathy - Cardiac Cardiac: RRR, No murmur - Respiratory Respiratory: No respiratory distress, Clear bilaterally, Other (port right chest without redness nor swelling. ) - Abdomen Abdomen: Normal bowel sounds, Soft, Non distended, No organomegaly, Other (tender mid abd to left upper and some to epigsatric area. Not tender RUQ nor RLQ per se. No percussion nor rebound tenderness. ) - Rectal Rectal: Deferred - Back Back: No CVA TTP - Derm Derm: Normal color, Warm and dry - Extremities Extremities: No edema, No calf tenderness / cord - Neuro Neuro: Alert and oriented X 3, No motor deficit, Normal speech Results - Vitals Vitals: Vital Signs - 24 hr 04/23/23 04/23/23 15:28 18:00 Temperature 36.5 C Heart Rate 87 75 Respiratory 16 18 Rate Blood Pressure 134/76 H 112/61 O2 Saturation 98 97 Oxygen O2 Source Room air - Labs Labs: Laboratory Tests 04/23/23 04/23/23 15:57 15:57 WBC 3.1 L RBC 3.09 L Hgb 10.8 L Hct 32.1 L MCV 103.9 H MCH 35.0 H MCHC 33.6 RDW 14.2 Plt Count 275 MPV 9.8 Neut # (Auto) Not Reportable Lymph # (Auto) Not Reportable [place] # (Auto) Not Reportable Eos # (Auto) Not Reportable Baso # (Auto) Not Reportable Absolute Nucleated RBC Not Reportable Total Counted 100 Band Neuts % (Manual) 0 Abnorm Lymph % (Manual) 0 Nucleated RBC % Not Reportable Neutrophils # (Manual) 2.4 Lymphocytes # (Manual) 0.6 L Monocytes # (Manual) 0.0 Eosinophils # (Manual) 0.0 Basophils # (Manual) 0.0 Differential Comment MANUAL DIFFERENTIAL Platelet Estimate NORMAL (130-450,000) Platelet Morphology NORMAL APPEARANCE RBC Morph Micro Appear NORMAL APPEARANCE Sodium 139 Potassium 3.5 Chloride 104 Carbon Dioxide 29 Anion Gap 6.0 BUN 18 Creatinine 0.9 Estimated GFR (MDRD) 62 L Glucose 95 Calcium 9.7 Phosphorus 3.8 Magnesium 1.3 L Total Bilirubin 0.5 AST 11 ALT 8 L Alkaline Phosphatase 61 Total Protein 7.1 Albumin 3.9 Globulin 3.2 Albumin/Globulin Ratio 1.2 Lipase 22 - Rads (name of study) abd/pelvic CT Relevant Findings:: EMP independent interpretation of test (pt still to get CT at shift change.) PD Medical Decision Making - ED course Complexity details: considered differential (The patient has had consistent upper mid to left abdominal pain for 2 weeks with nausea and less appetite and occasional vomiting. Considerations would be gastritis or ulcer, diverticulitis, colitis, pancreatitis. We will do labs and CT scan. Meanwhile give IV fluids and antiemetic and some pain ) Reviewed Lab Results: WBC is adequate at 3.1, not neutropenic. Mag is low at 1.3, K borderline at 3.5 other electrolytes are okay. Renal function stable with creatinine 0.9. Pending CT still at this time. Pt given IV fluids and antiemetics. Presume some element of gastritis and given Famotidien. Liapse and LFTs are normal. . ED course: Pérez Hernandez, Oncology is her Oncologist (newer to [facility]). She is on Ibrance which is a CDK 4 and 6 inhibitor, as well as Letrozole anit-estrogen receptor med. The patient has had nausea with less appetite but only a few episodes of vomiting over the last 2 weeks. She thought it was a "stomach flu" initially. No diarrhea. However the symptoms have persisted along with mid to left upper abdominal pain during that same timeframe. The pain has been fairly consistent though worse at times. Without improving now, she did call and talk to her oncologist in the office that she should come to the ER. No history of prior similar episodes. No recent change in medicines. She denies history of diverticulitis but states she had been told she may have diverticula in the past. She still has her gallbladder and appendix. She denies any bloody stools or dark stools. No upper respiratory symptoms. Departure - Departure Disposition: Home, Self Care Clinical Impression: Vomiting Condition: Stable Record reviewed to determine appropriate education?: Yes Instructions: ED Nausea Vomiting Prescriptions: Omeprazole 40 mg PO DAILY #30 cap Ondansetron Odt [Zofran] 4 mg TL Q6H PRN #10 tablet PRN Reason: Nausea / Vomiting Comments: CAT scan was normal except for T10 vertebral plana which would not cause the current symptoms. Given your current symptoms I suspect it might be gastritis or ulcer and I am going to start something for stomach acid and also writing for nausea medicine. Return for new or worsening symptoms. Follow-up with your primary care physician, next available appointment. If symptoms are persistent they may recommend GI consultation for upper endoscopy. Follow-up with Dr. Pérez Hernandez. Forms: PCP List Discharge Date/Time: 04/23/23 19:36
[2023-04-23] MEDS ORDERED: DROPERIDOL 5 MG/2 ML VIAL IVP STA (16:13)
[2023-04-23] MEDS ORDERED: SODIUM CHLORIDE 0.9% 1,000 ML IV STA ×2 (16:13→16:15)
[2023-04-23] MEDS ORDERED: FAMOTIDINE 20 MG/2 ML VIAL IVP STA (16:14)
[2023-04-23] MEDS ORDERED: iohexoL-300 100 ML VIAL ONE (16:17)
[2023-04-23 16:24] LABS: BASOPHILS % (AUTO) 1.3 %; HCT - HEMATOCRIT 32.1 % (37.0-47.0); HGB - HEMOGLOBIN 10.8 g/dL (12.0-16.0); LYMPHOCYTES % (AUTO) 16.6 %; MEAN CORPUSCULAR HGB CONC 33.6 g/dL (32.0-36.0); MEAN CORPUSCULAR VOLUME 103.9 fL (81.0-99.0); MEAN PLATELET VOLUME 9.8 fL (7.9-10.8); MONOCYTES % (AUTO) 5.2 %; NEUTROPHILS % (AUTO) 75.2 %; PLT - PLATELET COUNT 275 10^3/uL (130-450); RED BLOOD COUNT 3.09 10^6/uL (4.20-5.40); RED CELL DISTRIBUTION WIDTH 14.2 % (12.0-15.0); WHITE BLOOD COUNT 3.1 x10^3/uL (4.8-10.8)
[2023-04-23 16:28] LABS: ABNORMAL LYMPHS % (MANUAL) 0 %; BAND NEUTROPHILS % (MANUAL) 0 %
[2023-04-23 16:57] LABS: ALBUMIN 3.9 g/dL (3.2-5.5); ALBUMIN/GLOBULIN RATIO 1.2 (1.0-2.2); BILIRUBIN,TOTAL 0.5 mg/dL (0.2-1.0); CALCIUM 9.7 mg/dL (8.5-10.3); CREATININE 0.9 mg/dL (0.6-1.3); MAGNESIUM 1.3 mg/dL (1.7-2.3); PHOSPHORUS 3.8 mg/dL (2.5-5.0); POTASSIUM 3.5 mmol/L (3.5-4.5); TOTAL PROTEIN 7.1 g/dL (6.4-8.9)
[2023-04-23 16:59] LABS: LYMPHOCYTES # (MANUAL) 0.6 10^3/uL (1.5-3.5); LYMPHOCYTES % (MANUAL) 20 %; NEUTROPHILS # (MANUAL) 2.4 10^3/uL (1.5-6.6)
[2023-04-23 17:00] LABS: DIFFERENTIAL COMMENT MANUAL DIFFERENTIAL; PLATELET ESTIMATE, MANUAL NORMAL (130-450,000) (NORMAL); PLATELET MORPHOLOGY NORMAL APPEARANCE (NORMAL); RBC MORPHOLOGY (MULTIPLE) NORMAL APPEARANCE (NORMAL)
[2023-04-23] MEDS ORDERED: MAGNESIUM SULFATE 2 GRAM 2 GM/50 ML BAG IV ONE (17:15)
[2023-04-23] MEDS ORDERED: POTASSIUM CHLOR 10 MEQ/100 ML 10 MEQ/100 ML BAG IV ONE (17:15)
[2023-04-23] MEDS ORDERED: KETOROLAC 15 MG/ML VIAL IVP STA (17:29)
[2023-04-23 18:17] VITALS: BP 112/61; O2SAT 97
--- NOTE | 2023-04-23 18:57 | CT Report ---
PROCEDURE: Abdomen/Pelvis W INDICATIONS: upper abd pain and nasuea 2 weeks CONTRAST: 100mL Omni 300 TECHNIQUE: After the administration of intravenous contrast, a CT scan of the abdomen and pelvis was performed. Images were recorded and evaluated at appropriate window settings. Reformats: coronal and sagittal. F or radiation dose reduction, the following was used: automated exposure control, adjustment of mA and /or kV according to patient size. COMPARISON: 09/23/2019 FINDINGS: Image quality: Excellent. Lung bases and heart: A small hiatal hernia is incidentally noted. Liver: No solid mass. Diffuse fatty liver infiltration can be seen. Gallbladder and biliary tree: Within normal limits. Spleen: No splenomegaly. Pancreas: No pancreatic ductal dilation. Adrenals: There is a 2.2 cm right adrenal nodule seen. No left Adrenal nodule. Kidneys and ureters: No hydronephrosis. No renal cystic lesion which requires follow up. No solid mas s. Bowel and peritoneum: No bowel distension. No pathologic free fluid. A normal appendix is seen on ser ies 4 image 68 Lymph nodes: No central or retroperitoneal adenopathy. Vessels: No infrarenal aortic aneurysm. PELVIS Reproductive organs: An apparent fibroid uterus can be seen. No adnexal masses are seen on either laurel e. Bladder: No abnormal wall thickening, accounting for underdistention. Pelvic lymph nodes: No pelvic adenopathy by size criteria. Bones: No aggressive osseous abnormality. There is a T10 compression deformity, with vertebral plana. This is new compared to the 09/23/2019 examination. However, no acute features are seen. Stable mild compression of arteries can be seen involving T2 and T3. Other: No significant ventral or inguinal hernia. IMPRESSION: No imaging explanation is found for the patient's presenting symptoms. T10 vertebral plana, which is new compared to 2019, it without features. A 2.2 cm right adrenal nodule is seen. On the prior noncontrast CT, the central portion of this measu res -30 Hounsfield units. This is considered to be a benign, lipid rich adrenal adenoma. Additional findings: Small hiatal hernia Fatty liver infiltration Fibroid uterus Normal appendix Reviewed by: Harvey Reyes MD on 04/23/2023 5:55 PM AKST Approved by: Harvey Reyes MD on 04/23/2023 5:55 PM AKST Station ID: [id number]
--- NOTE | 2023-04-23 19:13 | ED Physician Documentation ---
ED Addendum - Addendum Addendum: 04/23/23 19:[address] Mills at shift change pending CT imaging. The CT imaging was negative with the exception of the T10 compression fracture which the patient was already aware of. Nothing to correspond with her current symptoms of 2 weeks of left upper quadrant pain and vomiting. Suspect she has gastritis or ulcer. Given a prescription for omeprazole and Zofran. Discharged in stable condition. Diagnosis: 1. Left upper quadrant pain 2. Vomiting
[2023-04-23] MEDS ORDERED: iohexoL-300 100 ML VIAL IVP ONE (19:42)
== END 2023-04-23 19:36 | disposition home or self-care (01) ==
LOC: ED 15:14
DX: R10.12 Left upper quadrant pain (principal); R11.2 Nausea with vomiting, unspecified
CPT/HCPCS: 36415; 74177; 80053; 83690; 83735; 84100; 85025; 96365; 96366; 96375; 99284; 99285; Q9967